=== PATIENT | female | born 1955 | race African-American/Black ===

== ENCOUNTER 2018-02-11 10:24 | Emergency (ER) | payer MEDICARE ==
[2018-02-11 11:10] LABS: BASOPHILS 0.3 % (0-2); EOSINOPHILS 1.8 % (0-7); HEMATOCRIT 31.3 % (36.0-48.0); HEMOGLOBIN 10.2 g/dL (12-16); IMMATURE GRANULOCYTES 0.5 % (0-5); LYMPHOCYTES 18.2 % (15-50); MCH 24.5 pg (26.0-34.0); MCHC 32.6 g/dL (31.0-37.0); MCV 75.2 fL (80.0-100.0); MEAN PLATELET VOLUME 9.7 fL (7.4-10.4); MONOCYTES 4.9 % (2-11); NEUTROPHILS 74.3 % (40-80); PLATELET COUNT 378 10x3/uL (130-400); RBC 4.16 10x6/uL (4.00-5.40); WBC 11.7 10x3/uL (4.8-10.8)
[2018-02-11 11:24] LABS: ALBUMIN 2.3 g/dL (3.4-5.0); ALKALINE PHOSPHATASE 80 U/L (46-116); ALT (SGPT) 9 U/L (10-68); CALC OSMOLALITY 269 mosm/kg (275-300); CARBON DIOXIDE 24.6 mmol/L (21.0-32.0); CHLORIDE - SERUM 102 mmol/L (98-107); CREATININE - SERUM 0.6 mg/dL (0.6-1.3); GLUCOSE 95 mg/dL (74-106); POTASSIUM - SERUM 4.3 mmol/L (3.5-5.1); PROTEIN - SERUM 6.7 g/dL (6.4-8.2); SODIUM 136 mmol/L (136-145); UREA NITROGEN 7 mg/dL (7-18); eGFR NON AFRICAN AMERICAN > 90 mL/min (90-120)
[2018-02-11 11:25] LABS: APTT 32.5 SECONDS (22.8-39.4); INR 1.25 (0.85-1.17); PROTIME 15.3 SECONDS (11.6-15.0)
[2018-02-11 11:35] LABS: THYROID STIMULATING HORMONE 3.13 uIU/mL (0.36-3.74)
== END 2018-02-11 12:00 | disposition home or self-care (01) ==
LOC: D.ER 10:24
PROVIDERS: Family Medicine
DX: N93.9 Abnormal uterine and vaginal bleeding, unspecified (principal); I10 Essential (primary) hypertension; G61.0 Guillain-Barre syndrome